=== PATIENT | female | born 1980 | race Caucasian/White ===

== ENCOUNTER 2019-02-13 10:50 | Emergency (ER) | payer OTHER ==
[~2019-02-13] VITALS: Ht 170.2 cm; Wt 66.7 kg
--- NOTE | 2019-02-13 11:07 | PHYS DOC ---
Adult General Chief Complaint Chief Complaint: ANXIETY/PANIC ATTACK [facility] HPI Patient is a 39-year-old female who presents with complaint of anxiety attack. Patient states that symptoms started at about 8:00 this morning. She states that while she was feeling anxious, she started feeling palpitations like her heart was beating really fast and at times skipping beats. She states that at this point she feels like her anxiety got worse. She denies any actual chest pain. She denies any nausea, vomiting or diaphoresis. She states that she feels like she is coming out of her skin and is tingling in her hands.[] Review of Systems Review of Systems Constitutional: Denies fever or chills [] Respiratory: Denies cough or shortness of breath [] Cardiovascular: No additional information not addressed in HPI [] GI: Denies abdominal pain, nausea, vomiting, bloody stools or diarrhea [] Neurologic: Denies headache, focal weakness or sensory changes [] All other systems were reviewed and found to be within normal limits, except as documented in this note. Allergies Allergies Allergies Coded Allergies Type Severity Reaction Last Updated Verified prednisone Allergy Unknown 02/13/19 Yes Physical Exam Physical Exam Constitutional: Well developed, well nourished, no acute distress, non-toxic appearance. [] HENT: Normocephalic, atraumatic, bilateral external ears normal, oropharynx moist, no oral exudates, nose normal. [] Eyes: PERRLA, EOMI, conjunctiva normal, no discharge. [] Neck: Normal range of motion, no tenderness, supple, no stridor. [] Cardiovascular: Regular rate and rhythm[] Lungs & Thorax: Bilateral breath sounds clear to auscultation [] Abdomen: Bowel sounds normal, soft. [] Skin: Warm, dry, no erythema, no rash. [] edema. [] Neurologic: Alert and oriented X 3, no focal deficits noted. [] Psychologic: Moderately anxious. [] EKG EKG [] Radiology/Procedures Radiology/Procedures [] Course & Med Decision Making Course & Med Decision Making Pertinent Labs and Imaging studies reviewed. (See chart for details) [] Dragon Disclaimer Dragon Disclaimer This electronic medical record was generated, in whole or in part, using a voice recognition dictation system. Departure Departure: Impression: Primary Impression: Panic attack Additional Impression: Palpitations Disposition: 01 HOME, SELF-CARE Condition: STABLE Referrals: HAND,KYRIE (PCP) Patient Instructions: Anxiety and Panic Attacks, Palpitations Problem Qualifiers OLMAN SURESH Jr. DO Feb 13, 2019 11:07
--- NOTE | 2019-02-13 11:25 | EKG ---
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
[2019-02-13 11:26] LABS: BASO % 1 % (0-3); EOS # 0.1 x10^3/uL (0.0-0.7); EOS % 2 % (0-3); HEMATOCRIT 45.7 % (36.0-47.0); HEMOGLOBIN 15.7 g/dL (12.0-15.5); LYMPH % 18 % (24-48); MEAN CORPUSCULAR HEMOGLOBIN 32 pg (25-35); MEAN CORPUSCULAR HGB CONC 34 g/dL (31-37); MEAN CORPUSCULAR VOLUME 92 fL (79-100); MONO # 0.5 x10^3/uL (0.0-1.1); MONO % 9 % (0-9); NEUT # 4.2 x10^3uL (1.8-7.7); NEUT % 71 % (31-73); PLATELET COUNT 284 x10^3/uL (140-400); RED BLOOD COUNT 4.99 x10^6/uL (3.50-5.40); WHITE BLOOD COUNT 5.9 x10^3/uL (4.0-11.0)
[2019-02-13 11:37] VITALS: BP 142/95
[2019-02-13 11:37] LABS: ALBUMIN/GLOBULIN RATIO 1.2 (1.0-1.7); CALCIUM 9.6 mg/dL (8.5-10.1); GFR 61.1; MAGNESIUM 2.1 mg/dL (1.8-2.4); POTASSIUM 3.6 mmol/L (3.5-5.1); TOTAL BILIRUBIN 0.6 mg/dL (0.2-1.0); TOTAL PROTEIN 7.4 g/dL (6.4-8.2)
[2019-02-13 12:22] LABS: BACTERIA,URINE FEW /HPF (0-FEW); BILIRUBIN,URINE NEG (NEG); CLARITY,URINE CLEAR; COLOR,URINE YELLOW; GLUCOSE,URINE NEG (NEG); NITRITE,URINE NEG (NEG); RBC,URINE RARE /HPF (0-2); SQUAMOUS EPITHELIAL CELL,UR OCC /LPF; UROBILINOGEN,URINE 0.2 mg/dL (0.2 mg/dL)
== END 2019-02-13 13:00 | disposition home or self-care (01) ==
LOC: ER 10:50
DX: F41.0 Panic disorder [episodic paroxysmal anxiety] (principal); Z88.8 Allergy status to other drugs, medicaments and biological substances
CPT/HCPCS: 36415; 80053; 81001; 83735; 84443; 84484; 85025; 93005; 96374; 99285; J2060

== ENCOUNTER 2020-06-16 03:59 | Emergency (ER) | payer OTHER ==
[~2020-06-16] VITALS: Ht 170.2 cm; Wt 66.7 kg
--- NOTE | 2020-06-16 04:03 | PHYS DOC ---
Past History Past Medical History: Anxiety, Other Additional Past Medical Histor: Seasonal allergies. (HIGINIO LION MD) Past Surgical History: Cholecystectomy, (HIGINIO LION MD) Alcohol Use: Occasionally Drug Use: None (HIGINIO LION MD) General Adult HPI: HPI: ".. I ve been doing this Ketogenic diet.. now.. but the last couple days.. I started getting abd. pain.. irineo in this Lt flank.. and mid abdomen.. I have had a lot of diarrhea the last two days.. was just trying to power thru. it.. but the cramping and pain woke me up tonight... " Patient is a 40 year old female dependent who presents with above hx and complaints of left flank and mid abdomen pain. Patient has had frequent watery stools the last 2 days. Patient denies any fever or chills. Patient denies any bad food intake. Has been however doing a ketogenic diet. Has not traveled outside the [place] area. has traveled extensively for his assignments. His last trip was to [place]. He has not been ill. No other family members have been ill eating the same ketogenic diet. Patient reports she has done keto genic diet in the past with no problem. Patient is on city water. Denies any trauma. No specific ill contacts. Is up-to-date with vaccinations. Her has had Covid vaccination. She has not had Covid vaccination. Patient and family has not had any history of colitis. There is a family history of kidney stones. Patient's denies any history of ovarian cyst. Patient herself has never had kidney stones. Patient is never had a colono scopy. Has undergone gallbladder surgery and C-sections. Has not been on antibiotics recently or been in contact with risk for C. difficile infections. No animal exposures. Patient reports she is normally healthy. No history immunosuppression. Patient has had a recent high intake of sugar-free foods puddings. Patient also has had increased dairy intake. Patient in past never had lactose intolerance. Pt. follows with Dr. Allen Vickers at [place] for primary care. (HIGINIO LION MD) Review of Systems: Review of Systems: Constitutional: Denies fever or chills Eyes: Denies change in visual acuity HENT: Denies nasal congestion or sore throat Respiratory: Denies cough or shortness of breath Cardiovascular: Denies chest pain or edema GI: Complaints of Lt mid abdominal pain with diarrhea . Denies nausea, vomiting, bloody stools . : Denies dysuria Musculoskeletal: Denies back pain or joint pain Integument: Denies rash Neurologic: Denies headache, focal weakness or sensory changes Endocrine: Denies polyuria or polydipsia Lymphatic: Denies swollen glands Psychiatric: Denies depression or anxiety (HIGINIO LION MD) Family History: Family History: Kidney stones (HIGINIO LION MD) Current Medications: Current Meds: See nursing for home meds (HIGINIO LION MD) Allergies: Allergies: Allergies Coded Allergies Type Severity Reaction Last Updated Verified prednisone Allergy Unknown 02/13/19 Yes (HIGINIO LION MD) Physical Exam: PE: Constitutional: Moderate acute distress, non-toxic appearance. [] HENT: Normocephalic, atraumatic, bilateral external ears normal, oropharynx moist, no oral exudates, nose normal. [] Eyes: PERRLA, EOMI, conjunctiva normal, no discharge. [] Neck: Normal range of motion, no tenderness, supple, no stridor. [] Cardiovascular:Heart rate regular rhythm, no murmur [] Lungs & Thorax: Bilateral breath sounds equal apex on auscultation [] Abdomen: Bowel sounds hyperactive, soft, left mid and lower tenderness, no masses, no pulsatile masses. Rebound pain to left mid abdomen. Old surgical scars. Skin: Warm, dry, no erythema, no rash. No zoster rash noted in area of pain Back: No tenderness, very mild CVA tenderness on left. Extremities: No tenderness, no cyanosis, no clubbing, ROM intact, no edema. No psoas sign Neurologic: Alert and oriented X 3, normal motor function, normal sensory function, no focal deficits noted. [] Psychologic: Affect anxious, judgement normal, mood normal. [] (HIGINIO LION MD) EKG: EKG: [] (HIGINIO LION MD) Radiology/Procedures: Radiology/Procedures: [][address] [address] IMAGING REPORT Signed PATIENT: CHRIS KIMBLE ACCOUNT: [id number] : 1980 LOCATION: ER AGE: 40 SEX: F EXAM STATUS: REG ER ORD. PHYSICIAN: HIGINIO LION MD REASON: pain PROCEDURE: ACUTE ABDOMEN SERIES ACUTE ABDOMEN SERIES History: Pain. Comparison: None. Findings: Frontal chest and supine and upright views of the abdomen. Cardiomediastinal silhouette is normal. There is no pleural effusion or pneumothorax. The lungs are clear. No pneumoperitoneum is identified. No dilated air-filled loops of bowel are seen. Bowel gas pattern is nonobstructive. No obvious organomegaly. Bones unremarkable. Cholecystectomy clips. IMPRESSION: 1. No acute cardiopulmonary process. 2. Nonobstructive bowel gas pattern. Electronically signed by: Pj Ahmadi MD (06/16/2020 5:33 AM) [facility] [address] DICTATED AND SIGNED BY: PJ AHMADI MD DATE: 06/16/20529 CC: HIGINIO LION MD; KYRIE VICKERS ~MTH0 0 (HIGINIO LION MD) Radiology/Procedures: Exam: CT abdomen/pelvis with intravenous contrast Indication: Left abdominal pain Comparison: None Technique: Helical CT imaging performed of the abdomen and pelvis after the intravenous administration of 75 mL Omnipaque 300 intravenous contrast. Sagittal and coronal reformats were obtained. One or more of the following individualized dose reduction techniques were utilized for this examination: 1. Automated exposure control 2. Adjustment of the mA and/or kV according to patient size 3. Use of iterative reconstruction technique. Findings: Lower chest: Normal. Liver: There are multiple low-density circumscribed lesions in the liver, likely cysts or hemangiomas, measuring up to 2 cm. Gallbladder/Biliary Tree: Gallbladder surgically absent. Bile ducts are normal. Pancreas: Normal. Spleen: Normal. Adrenal Glands: Normal. Kidneys/Ureters/Bladder: The kidneys are normal in size and enhance symmetrically. No hydronephrosis. Ureters and bladder are normal. Reproductive Organs: Uterus and ovaries are normal. Stomach, small bowel, and colon: Stomach, small bowel, appendix, and colon are normal. Vasculature: Abdominal aorta and inferior vena cava are normal. Lymph Nodes: No lymphadenopathy. Peritoneum and retroperitoneum: No free fluid or free air. Bones: No acute osseous abnormality. Impression: 1. No acute intra-abdominal/pelvic abnormality. 2. Multiple low-density liver lesions, likely cysts or hemangiomas. (ISMAEL JOSEPH MD) Heart Score: Risk Factors: Risk Factors: DM, Current or recent (<one month) smoker, HTN, HLP, family history of CAD, obesity. Risk Scores: Score 0 - 3: 2.5% MACE over next 6 weeks - Discharge Home Score 4 - 6: 20.3% MACE over next 6 weeks - Admit for Clinical Observation Score 7 - 10: 72.7% MACE over next 6 weeks - Early Invasive Strategies (HIGINIO LION MD) Course & Med Decision Making: Course & Med Decision Making Pertinent Labs and Imaging studies reviewed. (See chart for details) UA still pending at shift change. Dependent on UA findings may elect to do CT with contrast or without contrast. Patient endorsed to at shift change. She will make disposition. Impression: 1. Abdomen Pain- Lt. mid abdomen 2. Diarrhea 3. Hx. of on a ketogenic diet for weight loss [] (HIGINIO LION MD) Course & Med Decision Making Accepted care at shift change, pending CT. Labs unremarkable Work-up unremarkable, discussed return precautions with patient and diet for diarrhea. (ISMAEL JOSEPH MD) Dragon Disclaimer: Dragon Disclaimer: This electronic medical record was generated, in whole or in part, using a voice recognition dictation system. (HIGINIO LION MD) Departure Departure: Impression: Primary Impression: Diarrhea Additional Impression: LUQ abdominal pain Disposition: 01 DC HOME SELF CARE/HOMELESS Condition: STABLE Referrals: KYRIE VICKERS (PCP) Patient Instructions: Diet for Diarrhea, Adult Dragon Disclaimer This chart was dictated in whole or in part using Voice Recognition software in a busy, high-work load, and often noisy Emergency Department environment. It may contain unintended and wholly unrecognized errors or omissions. (HIGINIO LION MD) Dragon Disclaimer This chart was dictated in whole or in part using Voice Recognition software in a busy, high-work load, and often noisy Emergency Department environment. It may contain unintended and wholly unrecognized errors or omissions. (HIGINIO LION MD) HIGINIO LION MD Jun 16, 2020 04:03 ISMAEL JOSEPH MD Jun 16, 2020 09:30
[2020-06-16] MEDS ORDERED: FAMOTIDINE 20 MG/2 ML VIAL IVP ONE (04:45)
[2020-06-16] MEDS ORDERED: ONDANSETRON PF 4 MG/2 ML VIAL. IVP ONE (04:45)
[2020-06-16] MEDS ORDERED: IV RINGERS SOLUTION,LACTATED 1,000 ML IV SCH (04:45)
[2020-06-16] MEDS ORDERED: KETOROLAC 30 MG/ML VIAL. IVP ONE (04:45)
[2020-06-16] MEDS ORDERED: KETOROLAC 15 MG/ML VIAL. ONE (04:54)
[2020-06-16 05:28] LABS: BASO % 1 % (0-3); EOS # 0.1 x10^3/uL (0.0-0.7); EOS % 2 % (0-3); HEMATOCRIT 46.2 % (36.0-47.0); HEMOGLOBIN 15.6 g/dL (12.0-15.5); LYMPH # 0.9 x10^3/uL (1.0-4.8); LYMPH % 16 % (24-48); MEAN CORPUSCULAR HEMOGLOBIN 31 pg (25-35); MEAN CORPUSCULAR HGB CONC 34 g/dL (31-37); MEAN CORPUSCULAR VOLUME 92 fL (79-100); MONO # 0.6 x10^3/uL (0.0-1.1); MONO % 11 % (0-9); NEUT # 3.8 x10^3uL (1.8-7.7); NEUT % 70 % (31-73); PLATELET COUNT 234 x10^3/uL (140-400); RED BLOOD COUNT 5.01 x10^6/uL (3.50-5.40); RED CELL DISTRIBUTION WIDTH 13.8 % (11.5-14.5); WHITE BLOOD COUNT 5.5 x10^3/uL (4.0-11.0)
[2020-06-16 05:33] LABS: CALCIUM 9.3 mg/dL (8.5-10.1); CREATININE 0.9 mg/dL (0.6-1.0); GFR 68.7; POTASSIUM 3.5 mmol/L (3.5-5.1)
--- NOTE | 2020-06-16 05:36 | RAD ---
ACUTE ABDOMEN SERIES History: Pain. Comparison: None. Findings: Frontal chest and supine and upright views of the abdomen. Cardiomediastinal silhouette is normal. There is no pleural effusion or pneumothorax. The lungs are clear. No pneumoperitoneum is identified. No dilated air-filled loops of bowel are seen. Bowel gas pattern i s nonobstructive. No obvious organomegaly. Bones unremarkable. Cholecystectomy clips. IMPRESSION: 1. No acute cardiopulmonary process. 2. Nonobstructive bowel gas pattern. Electronically signed by: Pj Ahmadi MD (06/16/2020 5:33 AM) [facility]
[2020-06-16 05:40] LABS: DIRECT BILIRUBIN 0.2 mg/dL (0.0-0.2); TOTAL BILIRUBIN 0.7 mg/dL (0.2-1.0); TOTAL PROTEIN 7.7 g/dL (6.4-8.2)
[2020-06-16 07:00] LABS: BILIRUBIN,URINE NEG (NEG); CLARITY,URINE HAZY; COLOR,URINE YELLOW; GLUCOSE,URINE NEG (NEG); NITRITE,URINE NEG (NEG); UROBILINOGEN,URINE 0.2 mg/dL (0.2 mg/dL)
[2020-06-16 07:02] LABS: BACTERIA,URINE MOD /HPF (0-FEW); SQUAMOUS EPITHELIAL CELL,UR MANY /LPF
[2020-06-16] MEDS ORDERED: IOHEXOL 300 MG/ML 75 ML VIAL. IV ONE (07:45)
--- NOTE | 2020-06-16 09:04 | RAD ---
Exam: CT abdomen/pelvis with intravenous contrast Indication: Left abdominal pain Comparison: None Technique: Helical CT imaging performed of the abdomen and pelvis after the intravenous administratio n of 75 mL Omnipaque 300 intravenous contrast. Sagittal and coronal reformats were obtained. One or more of the following individualized dose reduction techniques were utilized for this examinat ion: 1. Automated exposure control 2. Adjustment of the mA and/or kV according to patient size 3. Use of iterative reconstruction technique. Findings: Lower chest: Normal. Liver: There are multiple low-density circumscribed lesions in the liver, likely cysts or hemangiomas , measuring up to 2 cm. Gallbladder/Biliary Tree: Gallbladder surgically absent. Bile ducts are normal. Pancreas: Normal. Spleen: Normal. Adrenal Glands: Normal. Kidneys/Ureters/Bladder: The kidneys are normal in size and enhance symmetrically. No hydronephrosis. Ureters and bladder are normal. Reproductive Organs: Uterus and ovaries are normal. Stomach, small bowel, and colon: Stomach, small bowel, appendix, and colon are normal. Vasculature: Abdominal aorta and inferior vena cava are normal. Lymph Nodes: No lymphadenopathy. Peritoneum and retroperitoneum: No free fluid or free air. Bones: No acute osseous abnormality. Impression: 1. No acute intra-abdominal/pelvic abnormality. 2. Multiple low-density liver lesions, likely cysts or hemangiomas. Electronically signed by: Paola Leong MD (06/16/2020 9:02 AM) [id number]
[2020-06-16 09:38] VITALS: BP 153/85
== END 2020-06-16 09:40 | disposition home or self-care (01) ==
LOC: ER 03:59
DX: R19.7 Diarrhea, unspecified (principal); R10.32 Left lower quadrant pain; F41.9 Anxiety disorder, unspecified; Z90.49 Acquired absence of other specified parts of digestive tract; Z98.890 Other specified postprocedural states; Z88.8 Allergy status to other drugs, medicaments and biological substances
CPT/HCPCS: 36415; 74022; 74177; 80048; 80076; 81001; 82150; 82550; 83690; 85025; 85610; 85730; 87086; 96361; 96374; 96375; 99285; J1885; J2405; J3490; J7120; Q9967

== ENCOUNTER 2020-10-01 10:18 | Emergency (ER) | payer OTHER ==
[~2020-10-01] VITALS: Ht 170.2 cm; Wt 73.8 kg
--- NOTE | 2020-10-01 10:28 | PHYS DOC ---
Past History Past Medical History: Anxiety, Other Additional Past Medical Histor: Seasonal allergies. Past Surgical History: Cholecystectomy, Alcohol Use: Occasionally Drug Use: None Adult General HPI HPI Patient is a 40-year-old female with a past medical history significant for anxiety and panic attacks who presents to the emergency department with a chief complaint of anxiety attack. States over the last 2 weeks or so she has had 3 full-blown anxiety attacks. States she has been having a most of her life and this also runs in her family. States they all started about the same, with feelings of generalized anxiety which work-up into acute anxiety attack with feelings that she needs to get up and walk or just run. States that she also gets cold and sweaty palms when this happens. States that they vary in length can be anywhere from minutes to hours. States that she had an acute onset last night with the symptoms and has not resolved, but is down to a more manageable level and not acute like it was last night. States that they are , and are moving next week. [place] advised to come to the emergency department. Denies headache, changes in vision, numbness/weakness/tingling, chest pain, shortness of breath, abdominal pain, nausea, vomiting, dysuria, hematuria, blood in the stool. Denies any alcohol or drug use. Denies any recent travel, illnesses, fevers, Covid/flu/cold symptoms. States she is otherwise eating and drinking normally. States she is making urine and stool normally for her. S tatemelyn she actually feels kind of silly coming in with this because she is starting to feel better. Review of Systems Review of Systems Review of systems otherwise unremarkable except noted in HPI Allergies Allergies Allergies Coded Allergies Type Severity Reaction Last Updated Verified prednisone Allergy Unknown 02/13/19 Yes Physical Exam Physical Exam Constitutional: Well developed, well nourished, no acute distress, non-toxic appearance. [] HENT: Normocephalic, atraumatic, Eyes: EOMI, conjunctiva normal, no discharge. [] Neck: Normal range of motion, Cardiovascular:Heart rate regular rhythm, no murmur [] Lungs & Thorax: No respiratory distress Skin: Warm, dry, no erythema, no rash. [] Extremities: No tenderness, no cyanosis, ROM intact, no edema. [] Neurologic: Alert and oriented X 3, no focal deficits noted. [] Psychologic: Affect normal, judgement normal, mood normal. [] EKG EKG EKG with a rate of 78, QRS of 82, QTc 411, no STEMI [] Radiology/Procedures Radiology/Procedures [] Heart Score C/O Chest Pain: No Risk Factors: Risk Factors: DM, Current or recent (<one month) smoker, HTN, HLP, family history of CAD, obesity. Risk Scores: Risk Factors: DM, Current or recent (<one month) smoker, HTN, HLP, family history of CAD, obesity. Course & Med Decision Making Course & Med Decision Making Patient is a 40-year-old female who presents with a chief complaint of anxiety a ttack/generalized anxiety Vital signs not concerning. Physical exam noted above. Patient alert and oriented no acute distress with no focal neurologic deficits appreciated. Heart score of 0. Low risk [place]. PERC negative. EKG noted above and normal. Troponin normal. Given diazepam. TSH pending. Discussed generalized anxiety, anxiety and panic attacks with patient and desean peres to cope at home. Gave education on on such. Advised that TSH is pending and will be reported most likely tomorrow and she will be contacted with results. Advised to call primary care physician first thing in the morning or primary catheter physician at the number provided or her primary care physician where they are moving to set up a follow-up appointment as soon as she can to discuss anxiety/panic attack management at home and strategies. Gave return precautions to the ED. Patient grateful, verbalized understanding and agreed with plan of discharge. [] Dragon Disclaimer Dragon Disclaimer This electronic medical record was generated, in whole or in part, using a voice recognition dictation system. Departure Departure: Impression: Primary Impression: Anxiety attack Additional Impression: Anxiety, generalized Disposition: 01 HOME / SELF CARE / HOMELESS Condition: GOOD Referrals: PCP,UNKNOWN (PCP) DELMI JOAQUIN MD Patient Instructions: Anxiety and Panic Attacks Additional Instructions: Please read all of the attached information very carefully. You were given a medication today uses anxiety, but needs to be prescribed by a primary care physician to allow them to fall your course of treatment and adjust medications as needed. Please call your primary care physician as soon as you can to update on ED visit and set up a follow-up to discuss management of anxiety and anxiety attacks at home. If you do not have a primary care physician you can call the local primary care physician at the number provided to set up your follow-up appointment. Please come back to the emergency department immediately if you have any new or concerning symptoms as discussed. Scripts Diazepam (DIAZEPAM) 5 Mg Tablet 5 MG PO DAILY for anxiety attack for 5 Days, #5 TAB 0 Refills Prov: PASHA FREY MD 10/01/20 Problem Qualifiers PASHA FREY MD October 01, 2020 10:28
[2020-10-01] MEDS ORDERED: diazePAM 5 MG TABLET. PO ONE (10:45)
[2020-10-01] MEDS ORDERED: DIAZ5TAB4 PO (10:49)
--- NOTE | 2020-10-01 10:54 | EKG ---
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
[2020-10-01 11:25] VITALS: BP 121/66
== END 2020-10-01 11:43 | disposition home or self-care (01) ==
LOC: ER 10:18
DX: F41.1 Generalized anxiety disorder (principal); Z88.8 Allergy status to other drugs, medicaments and biological substances; Z90.49 Acquired absence of other specified parts of digestive tract
CPT/HCPCS: 36415; 84443; 84484; 93005; 99284-25